=== PATIENT | male | born 1985 ===

== ENCOUNTER 2018-07-18 06:13 | Emergency (ER) | payer OTHER ==
[2018-07-18] MEDS ORDERED: IBUPROFEN PO ONE (07:06)
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
[2018-07-18 07:43] VITALS: BP 146/81
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
[2018-07-18] MEDS ORDERED: TYLENOL #3 PO ONE (08:00)
== END 2018-07-18 08:38 | disposition home or self-care (01) ==
LOC: ED 06:13
DX: S39.012A Strain of muscle, fascia and tendon of lower back, initial encounter (principal); S13.4XXA Sprain of ligaments of cervical spine, initial encounter; V49.49XA Driver injured in collision with other motor vehicles in traffic accident, initial encounter; Y93.89 Activity, other specified; Y92.488 Other paved roadways as the place of occurrence of the external cause; Y99.8 Other external cause status
CPT/HCPCS: 72040; 72100; 99283